=== PATIENT | female | born 1995 ===

== ENCOUNTER 2022-03-17 16:26 | Emergency (ER) | payer SELFPAY ==
[2022-03-17] MEDS ORDERED: ASPIRIN 325 MG TAB PO ONE (16:42)
--- NOTE | 2022-03-17 17:24 | XRay Report ---
CHEST 2 VIEWS INDICATION: chest pain. COMPARISON: None FINDINGS: SUPPORT DEVICES: None. HEART: Within normal limits. LUNGS/PLEURA: No acute air space or interstitial disease. No pneumothorax. ADDITIONAL FINDINGS: None. IMPRESSION: 1. No acute findings. Signer Name: Zana Espinal MD Signed: 03/17/2022 5:20 PM Workstation Name: [id number]
[2022-03-17 18:07] LABS: Basophils % (Auto) 0.5 % (0.0-1.8); Eosinophils # (Auto) 0.1 K/mm3 (0.0-0.4); Eosinophils % (Auto) 1.4 % (0.0-4.3); Hematocrit 41.4 % (30.3-42.9); Hemoglobin 12.9 gm/dl (10.1-14.3); Lymphocytes # (Auto) 1.8 K/mm3 (1.2-5.4); Lymphocytes % (Auto) 25.6 % (13.4-35.0); Mean Corpuscular HGB Conc 31 % (30-34); Mean Corpuscular Volume 76 fl (79-97); Monocytes # (Auto) 0.5 K/mm3 (0.0-0.8); Monocytes % (Auto) 6.5 % (0.0-7.3); Platelet Count 290 K/mm3 (140-440); Red Blood Count 5.47 M/mm3 (3.65-5.03); Red Cell Distribution Width 19.4 % (13.2-15.2)
[2022-03-17 18:24] LABS: Alanine Aminotransferase 36 units/L (7-56); Albumin 4.9 g/dL (3.9-5); BUN/Creatinine Ratio 11; Blood Urea Nitrogen 9 mg/dL (7-17); Calcium 9.8 mg/dL (8.4-10.2); Hemolysis Index 14
--- NOTE | 2022-03-18 14:04 | Electrocardiograph Report ---
[facility] Test Date: 2022-03-17 Test Time: 16:31:14 Pat Name: LOUIE ACEVES Department: Room: Gender: F Radio Interference Supervisor: Azul SHIELDS RN : 1995 Requested By: CLEMENTINE CORNELL Order Number: [id number] Reading MD: Yuliana Hogan Measurements Intervals [place] Rate: 73 P: -5 MA: 186 QRS: 5 QRSD: 85 T: 12 QT: 401 QTc: 443 Interpretive Statements Sinus rhythm No previous ECG available for comparison Electronically Signed On 03-18-2022 14:04:01 EDT by Yuliana Hogan
== END 2022-03-17 19:30 | disposition left against medical advice (07) ==
LOC: ED 16:26
DX: R07.9 Chest pain, unspecified (principal); R55 Syncope and collapse; G43.909 Migraine, unspecified, not intractable, without status migrainosus; Z53.21 Procedure and treatment not carried out due to patient leaving prior to being seen by health care provider
CPT/HCPCS: 36415; 71046; 80053; 84484; 85025; 93005